=== PATIENT | male | born 1995 | race Two or more races ===

== ENCOUNTER 2023-01-14 22:10 | Emergency (ER) | payer SELFPAY ==
[~2023-01-14] VITALS: Ht 170.2 cm; Wt 72.0 kg
[2023-01-14 22:30] VITALS: BP 145/94; PULSE 110; RESP 20; TEMP 98.5
== END 2023-01-15 00:33 | disposition left against medical advice (07) ==
LOC: EMS 22:11
DX: R06.02 Shortness of breath (principal); Z53.21 Procedure and treatment not carried out due to patient leaving prior to being seen by health care provider
CPT/HCPCS: 99281; Z7502